=== PATIENT | female | born 1995 | race Caucasian/White ===

== ENCOUNTER 2023-08-12 08:35 | Day surgery (SDC) | payer OTHER ==
[~2023-08-12] VITALS: Ht 167.6 cm; Wt 96.3 kg
[~2023-08-12 08:35] MED LIST: MASON NATURAL2000 IU PO; MULTI VITAMINS1 TAB PO; NORCO 325 MG-51 TAB PO; PHARMASSURE ZIN50 MG PO; VITAMINC1000TA
[2023-08-12 09:36] VITALS: BP 105/65; PULSE 78; TEMP 97.7
[2023-08-12 12:50] VITALS: BP 91/46; PULSE 68; TEMP 97
[2023-08-12 13:05] VITALS: BP 97/57; PULSE 70
[2023-08-12 13:20] VITALS: BP 96/57; PULSE 64
[2023-08-12 13:35] VITALS: BP 99/50; PULSE 58
[2023-08-12 13:50] VITALS: BP 100/57; PULSE 72
--- NOTE | 2023-08-12 14:15 | NUR ---
1250 RETURNS TO ROOM 5 PER CART. AWAKE, ALERT. RESP UNLABORED. HOB ELEVATED 40 DEGREES. VITAL SIGNS OBTAINED. RIGHT ARM ELEVATED ON PILLOWS. DRESSING RIGHT FOREARM CLEAN DRY AND INTACT. MOVES FINGERS, WARM, STRONG RADIAL PULSE. REPORTS MODERATE DISCOMFORT RIGHT ARM. INCREASED ELEVATION. CALL LIGHT AT SIDE. MOTHER IN ROOM 1310 AWAKE, CONVERSES WITH MOTHER 1325 TOLERATES PO WATER AND SALTINE CRACKERS WITHOUT NAUSEA. REPORTS CONTINUED MODERATE DISCOMFORT. 1326 IV PAIN MED GIVEN 1335 REPORTS SIGNIFICANT INCREASED COMFORT. DISCHARGE INSTRUCTIONS REVIEWED. PATIENT VERBALIZES UNDERSTANDING. COPY PROVIDED IN DISCHARGE FOLDER 5687 SITS ON EDGE OF CART. DRESSES WITH MINIMAL ASSIST FROM MOTHER, THEN AMBULATES TO BATHROOM. REPORTS VOIDS WITHOUT DIFFICULTY
== END 2023-08-12 14:15 | disposition home or self-care (01) ==
LOC: SDCO 08:35
DX: L76.82 Other postprocedural complications of skin and subcutaneous tissue (principal); I96 Gangrene, not elsewhere classified; T63.3 Toxic effect of venom of spider
CPT/HCPCS: J0690; J2704; J3010; J7120